=== PATIENT | female | born 1970 | race Caucasian/White ===

== ENCOUNTER 2020-07-19 08:20 | Outpatient (CLI) | payer OTHER, SELFPAY ==
[~2020-07-19] VITALS: Ht 167.6 cm; Wt 90.7 kg
== END 2020-07-19 23:59 | disposition home or self-care (01) ==
LOC: MLB 08:20 → MDS 07-28 06:01 → MFCC 07-28 06:18 → MDS 07-28 06:18 → MFCC 07-28 07:30 → EDSTATUS 07-28 08:00
PROVIDERS: ATTEND Internal Medicine Gastroenterology
DX: Z01.812 Encounter for preprocedural laboratory examination (principal); K62.5 Hemorrhage of anus and rectum; Z20.828 Contact with and (suspected) exposure to other viral communicable diseases
CPT/HCPCS: U0003-CS

== ENCOUNTER 2020-08-11 06:30 | Day surgery (SDC) | payer OTHER, SELFPAY ==
[~2020-08-11] VITALS: Ht 167.6 cm; Wt 92.1 kg
[2020-08-11] MEDS ORDERED: fentaNYL citrate 0.05 MG/ML VIAL ONE (08:06)
[2020-08-11] MEDS ORDERED: LIDOCAINE 2% 100 MG/5 ML UJET TP ONE (08:06)
[2020-08-11] MEDS ORDERED: MIDAZOLAM 2 MG/2 ML VIAL ONE (08:06)
[2020-08-11] MEDS: MIDAZOLAM 2 MG/2 ML VIAL IVP ONE (08:27)
[2020-08-11] MEDS: fentaNYL citrate 0.05 MG/ML VIAL IVP ONE (08:27)
[2020-08-11] MEDS: LIDOCAINE 2% 100 MG/5 ML UJET TP ONE (08:30)
== END 2020-08-11 09:30 | disposition home or self-care (01) ==
LOC: MDS 06:30 → MMU 06:36 → MDS 09:30
PROVIDERS: ATTEND Internal Medicine Gastroenterology
DX: K62.5 Hemorrhage of anus and rectum (principal); K63.5 Polyp of colon; K58.8 Other irritable bowel syndrome; K59.00 Constipation, unspecified; I10 Essential (primary) hypertension; E78.00 Pure hypercholesterolemia, unspecified; Z20.828 Contact with and (suspected) exposure to other viral communicable diseases
CPT/HCPCS: 45385; 81025; 88305; J2250; J3010; U0003

== ENCOUNTER 2021-02-09 07:38 | Day surgery (SDC) | payer OTHER, SELFPAY ==
[~2021-02-09] VITALS: Ht 167.6 cm; Wt 95.3 kg
[2021-02-09] MEDS ORDERED: diphenhydrAMINE 50 MG/ML VIAL ONE (10:34)
[2021-02-09] MEDS ORDERED: MIDAZOLAM 5 MG/5 ML VIAL ONE ×2 (10:34→10:41)
[2021-02-09] MEDS ORDERED: fentaNYL citrate 0.05 MG/ML VIAL ONE (10:34)
[2021-02-09] MEDS ORDERED: MIDAZOLAM 2 MG/2 ML VIAL IVP ONE (13:00)
[2021-02-09] MEDS ORDERED: diphenhydrAMINE 50 MG/ML VIAL IVP ONE (13:00)
[2021-02-09] MEDS ORDERED: fentaNYL citrate 0.05 MG/ML VIAL IVP ONE (13:00)
== END 2021-02-09 13:15 | disposition home or self-care (01) ==
LOC: MDS 07:38 → MMU 07:41 → MDS 13:15
PROVIDERS: ATTEND Internal Medicine Gastroenterology
DX: K59.00 Constipation, unspecified (principal); D12.2 Benign neoplasm of ascending colon; Z86.010 Personal history of colon polyps; R14.0 Abdominal distension (gaseous); I10 Essential (primary) hypertension; Z79.899 Other long term (current) drug therapy; Z20.828 Contact with and (suspected) exposure to other viral communicable diseases
CPT/HCPCS: 43235; 45385; 81025; 88305; J1200; J2250; J3010; U0003